=== PATIENT | male | born 1990 | race Caucasian/White ===

== ENCOUNTER 2017-12-29 02:06 | Emergency (ER) | payer MEDICAID ==
[2017-12-29 04:32] LABS: URINE BLOOD (Dip) POC Negative (NEGATIVE); URINE GLUCOSE (Dip) POC Negative (NEGATIVE); URINE KETONES (Dip) POC Negative (NEGATIVE); URINE LEUKOCYTE EST (Dip) POC Negative (NEGATIVE); URINE NITRITE (Dip) POC Negative (NEGATIVE); URINE TOTAL PROTEIN POC Negative (NEGATIVE)
[2017-12-29] MEDS: SOD CHLORIDE 0.9% 1,000 ML IV (04:42)
[2017-12-29] MEDS: KETOROLAC 15 MG INJ IV (04:43)
[2017-12-29] MEDS: ACETAMINOPHEN 325 MG TAB PO (04:43)
[2017-12-29 04:56] LABS: ADD MAN DIFF? NO
[2017-12-29 05:17] LABS: ALANINE AMINOTRANSFERASE 59 IU/L (13-69); ALBUMIN 4.7 g/dl (3.3-4.9); ALBUMIN/GLOBULIN RATIO 1.42; ALKALINE PHOSPHATASE 78 IU/L (42-121); ANION GAP 16 (8-16); ASPARTATE AMINO TRANSFERASE 38 IU/L (15-46); BILIRUBIN,INDIRECT 0.3 mg/dl (0-1.1); BILIRUBIN,TOTAL 0.3 mg/dl (0.2-1.3); BLOOD UREA NITROGEN 15 mg/dl (7-20); CALCIUM 9.9 mg/dl (8.4-10.2); CARBON DIOXIDE 25 mmol/L (21-31); CHLORIDE 107 mmol/L (97-110); CREATININE 1.06 mg/dl (0.61-1.24); GLUCOSE 116 mg/dl (70-220); POTASSIUM 4.1 mmol/L (3.5-5.1); SODIUM 144 mmol/L (135-144)
[2017-12-29 05:19] LABS: ABNORMAL IP MESSAGE 1; BASOPHILS % 0.2 % (0.0-2.0); EOSINOPHILS # 0.2 10^3/ul (0.0-0.5); EOSINOPHILS % 1.6 % (0.0-7.0); LYMPHOCYTES # 1.5 10^3/ul (0.8-2.9); LYMPHOCYTES % 11.4 % (15.0-51.0); MEAN CORPUSCULAR HEMOGLOBIN 30.1 pg (29.0-33.0); MEAN CORPUSCULAR HGB CONC 34.1 g/dl (32.0-37.0); MEAN CORPUSCULAR VOLUME 88.4 fl (82.0-101.0); MEAN PLATELET VOLUME 13.5 fl (7.4-10.4); MONOCYTE # 0.9 10^3/ul (0.3-0.9); MONOCYTES % 7.1 % (0.0-11.0); NEUTROPHIL # 10.5 10^3/ul (1.6-7.5); NEUTROPHILS % 79.2 % (39.0-77.0); PLATELET COUNT 110 10^3/UL (140-415); POSITIVE DIFF @See below; RED BLOOD COUNT 4.98 10^6/ul (4.70-6.10); RED CELL DISTRIBUTION WIDTH 11.9 % (11.5-14.5)
[2017-12-29 05:19] LABS: WHITE BLOOD COUNT 13.2 10^3/ul (4.8-10.8)
== END 2017-12-29 06:02 | disposition home or self-care (01) ==
LOC: FTE 02:06
DX: J11.1 Influenza due to unidentified influenza virus with other respiratory manifestations (principal); R40.2412 Glasgow coma scale score 13-15, at arrival to emergency department
CPT/HCPCS: 36415; 71046; 80053; 81003; 85025; 87400; 87880; 96374; 99284-25

== ENCOUNTER 2018-02-08 18:40 | Emergency (ER) | payer MEDICAID ==
[2018-02-08] MEDS: IBUPROFEN 800 MG TAB PO (19:00)
[2018-02-08 19:14] LABS: ADD UMIC NO; UR ASCORBIC ACID NEGATIVE (NEGATIVE); UR BILIRUBIN (Dip) NEGATIVE (NEGATIVE); UR BLOOD (Dip) NEGATIVE (NEGATIVE); UR CLARITY CLEAR (CLEAR); UR COLOR YELLOW (YELLOW); UR GLUCOSE (Dip) NEGATIVE (NEGATIVE); UR KETONES (Dip) NEGATIVE (NEGATIVE); UR LEUKOCYTE ESTERASE (Dip) NEGATIVE Leu/ul (NEGATIVE); UR NITRITE (Dip) NEGATIVE (NEGATIVE); UR SPECIFIC GRAVITY (Dip) 1.023 (1.003-1.030); UR TOTAL PROTEIN (Dip) NEGATIVE (NEGATIVE); UR UROBILINOGEN (Dip) NEGATIVE (NEGATIVE)
== END 2018-02-08 20:37 | disposition home or self-care (01) ==
LOC: E/R 18:40
DX: I86.1 Scrotal varices (principal)
CPT/HCPCS: 76870; 81003; 87086; 99284-25

== ENCOUNTER 2019-01-30 20:39 | Emergency (ER) | payer SELFPAY, MEDICAID ==
[2019-01-30] MEDS: AZITHROMYCIN 500 MG TAB PO (23:00)
[2019-01-30] MEDS: CEFTRIAXONE 250 MG INJ IM (23:00)
[2019-01-30 23:06] LABS: URINE BLOOD (Dip) POC Negative (NEGATIVE); URINE GLUCOSE (Dip) POC Negative (NEGATIVE); URINE KETONES (Dip) POC Negative (NEGATIVE); URINE LEUKOCYTE EST (Dip) POC Negative (NEGATIVE); URINE NITRITE (Dip) POC Negative (NEGATIVE); URINE TOTAL PROTEIN POC Negative (NEGATIVE)
== END 2019-01-31 00:10 | disposition home or self-care (01) ==
LOC: FTE 01-31 00:10
DX: N34.2 Other urethritis (principal)
CPT/HCPCS: 81003; 87591; 96372; 99284-25